=== PATIENT | male | born 1990 | race Caucasian/White ===

== ENCOUNTER 2019-02-12 17:04 | Emergency (ER) | payer SELFPAY ==
[2019-02-12 17:11] VITALS: BP 148/86; PULSE 82; TEMP 98; BMI 24.0
[2019-02-12] MEDS ORDERED: DIPHTH,PERTUSS(ACELL),TET 0.5 ML DISP.SYRIN IM ONE ×2 (17:34→17:43)
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
== END 2019-02-12 19:42 | disposition home or self-care (01) ==
LOC: JERFT 17:04
PROC: 3E0234Z Introduction of Serum, Toxoid and Vaccine into Muscle, Percutaneous Approach (ICD-10-PCS; principal; 2019-02-12)
DX: R51 Headache (principal); Y04.2XXA Assault by strike against or bumped into by another person, initial encounter; Y93.89 Activity, other specified; Y92.488 Other paved roadways as the place of occurrence of the external cause; Y99.8 Other external cause status; Y07.9 Unspecified perpetrator of maltreatment and neglect
CPT/HCPCS: 70486-TC; 90715; 99281-25